=== PATIENT | male | born 1950 | race Caucasian/White ===

== ENCOUNTER 2024-01-02 07:45 | Outpatient (AMB) | payer BC, SELFPAY ==
--- NOTE | 2024-01-02 07:47 | A.OFFVIS_ITS ---
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 The patient states that his symptoms have gotten worse over the last few months. He has not had a cortisone injection. He wishes to hold off on surgery for as long as possible. Allergies oxycodone [From OxyContin] Allergy (Intermediate, Verified 01/02/24 07:49) Rash Penicillins Allergy (Intermediate, Verified 01/02/24 07:49) Rash Medication List - Last Reconciled 01/02/24 by Josué Do MD empagliflozin (Jardiance) 25 mg PO DAILY esomeprazole magnesium 20 mg PO DAILY ezetimibe 10 mg PO DAILY metformin 500 mg PO BID rosuvastatin 40 mg PO DAILY semaglutide (Ozempic) mg subcut Physical Exam Const Other: Well-nourished well-developed very friendly male awake alert and oriented x3 in no acute distress Extrem Other: Bilateral upper extremity examination shows good capillary refill, no skin lesions noted, normal sensation light touch Left middle finger examination shows palpable triggering, tenderness over his A1 emil, no overlying skin lesions Office Procedures Joint Injection/Aspiration Joint Injection/Aspiration Primary Site: left trigger finger (Left middle finger) Injected: 20 mg of, DepoMedrol and 1% plain lidocaine Procedure: The patient tolerated the procedure well Coding - Small Joint Procedure code (CPT) selection complete Assessment & Plan Assessment & Plan (1) Trigger finger, left middle finger: Code(s): M65.332 - Trigger finger, left middle finger Category: Medical Plan Mr. Mcdaniels presents with painful triggering of his left middle finger. The risks and benefits of a cortisone injection were discussed at length with the patient. The patient wished to proceed. He tolerated the injection well. He will continue with activities as tolerated. He will follow up with me on an as- needed basis should his symptoms not plateau at an unacceptable level over the next few months. I spent 21 minutes in reviewing the patient's records and imaging studies, seeing the patient and documenting in the medical record. Orders: Orders AMB Joint Injection/Aspiration Today M65.332 - Trigger finger, left middle finger Coding Level of Care Code New Pt Level 3 (36358) Diagnoses Trigger finger, left middle finger M65.332 CPT Codes Coding - - Small joint: - Small Joint ([id number])
== END 2024-01-02 08:03 | disposition home or self-care (01) ==
PROVIDERS: Visit Provider Orthopaedic Surgery
DX: M65.332 Trigger finger, left middle finger (principal)
CPT/HCPCS: 20600; 99203

== ENCOUNTER → 2024-01-02 07:45 | Outpatient (BNVA) | payer BC, SELFPAY | PROVIDERS: Visit Provider Orthopaedic Surgery | DX: M65.332 Trigger finger, left middle finger (principal) | CPT/HCPCS: 20550; 20600; J1010 ==